=== PATIENT | male | born 1960 | race Hispanic/Latino ===

== ENCOUNTER 2024-05-09 06:30 | Observation (INO) | payer OTHER ==
[2024-05-07 11:08] LABS: BASOPHILS # (AUTO) 0.03 K/uL (0.00-0.20); BASOPHILS % (AUTO) 0.4 % (0.0-5.0); EOSINOPHILS # (AUTO) 0.16 K/uL (0.00-0.70); EOSINOPHILS % (AUTO) 2.2 % (0.0-8.0); HEMATOCRIT 42.8 % (42-54); IMMATURE GRANULOCYTE ABSOLUTE 0.03 K/uL (0-1); LYMPHOCYTES # (AUTO) 1.1 K/uL (1.0-4.8); LYMPHOCYTES % (AUTO) 14.7 % (21.0-51.0); MEAN CORPUSCULAR HEMOGLOBIN 32.1 pg (27.0-33.0); MEAN CORPUSCULAR HGB CONC 33.6 g/dL (32.0-36.0); MEAN CORPUSCULAR VOLUME 95.3 fL (79-99); MONOCYTES # (AUTO) 0.6 K/uL (0.1-1.0); MONOCYTES % (AUTO) 8.1 % (3.0-13.0); NEUTROPHILS # (AUTO) 5.3 K/uL (1.8-7.7); NEUTROPHILS % (AUTO) 74.2 % (40.0-77.0); PLATELET COUNT (AUTO) 201 K/uL (130-400); RED BLOOD CELL COUNT(AUTO) 4.49 MIL/uL (4.50-6.20); RED CELL DISTRIBUTION WIDTH 12.7 % (11.0-15.5); WHITE BLOOD COUNT (AUTO) 7.1 K/uL (4.8-10.8)
[2024-05-07 11:17] LABS: ALBUMIN 3.4 g/dL (3.5-5.0); CREATININE 0.9 mg/dL (0.5-1.3); POTASSIUM 3.7 mmol/L (3.5-5.1)
[2024-05-07 11:34] LABS: INR 1.03 (0.85-1.15); PROTHROMBIN TIME 11.1 SEC (9.6-11.6)
[2024-05-07 11:35] LABS: PARTIAL THROMBOPLASTIN TIME 27.6 SEC (26.3-35.5)
[2024-05-07 11:50] VITALS: BP 158/74; PULSE 72; RESP 16
[~2024-05-09] VITALS: Ht 180.3 cm; Wt 131.8 kg
[2024-05-09] VITALS (29 sets, daily range): BP systolic 124–178; BP diastolic 58–98; PULSE 63–112; RESP 14–18; O2SAT 95–98
[~2024-05-09 06:30] MED LIST: ATOR40TA71 PO; FINA5TAB41 PO; HYDR25TA PO; IBUP-2071 PO
[2024-05-09] MEDS: CEFAZOLIN SODIUM 2 GM VIAL ONE ×2 (06:37→18:04)
[2024-05-09] MEDS: CEFAZOLIN SODIUM 1 GM VIAL ONE (06:37)
[2024-05-09] MEDS: LACTATED RINGERS 1000ML 1,000 ML IV ONE (06:37)
[2024-05-09] MEDS ORDERED: TRANEXAMIC ACID 1000MG/10ML ONE (07:30)
[2024-05-09] MEDS ORDERED: KETOROLAC 30MG VIAL (30MG/ML) ONE (07:30)
[2024-05-09] MEDS ORDERED: ROPIVACAINE 0.5% 5MG/ML 30ML ONE ×3 (07:31→08:59)
[2024-05-09] MEDS ORDERED: MIDAZOLAM HCL 1 MG/ML 2ML VIAL ONE (08:44)
[2024-05-09] MEDS ORDERED: SUCCINYLCHOLINE CHLORIDE 20 MG/ML 10 ML VIAL ONE (08:44)
[2024-05-09] MEDS ORDERED: PROPOFOL 10 MG/ML 20ML VIAL IV ONE (08:44)
[2024-05-09] MEDS ORDERED: ROCURONIUM BROMIDE 10MG/1ML 5ML VL ONE ×2 (08:44→09:27)
[2024-05-09] MEDS ORDERED: FENTANYL CITRATE PF 50 MCG/1 ML 2ML VIAL ONE ×2 (08:44→09:52)
[2024-05-09] MEDS: CEFAZOLIN SODIUM 2 GM VIAL IVPB ONE (08:53)
[2024-05-09] MEDS ORDERED: TRAMADOL HCL 50 MG TABLET PO PRN (09:00)
[2024-05-09] MEDS ORDERED: POTASSIUM CHLORIDE 20MEQ/100ML 100 ML IV PRN (09:00)
[2024-05-09] MEDS: GABAPENTIN 100 MG CAPSULE PO SCH (09:00)
[2024-05-09] MEDS ORDERED: POTASSIUM CHLORIDE 10% ELIXIR 20 MEQ/15 ML UDCUP PO PRN (09:00)
[2024-05-09] MEDS ORDERED: KCL 20 MEQ ERTAB PO PRN (09:00)
[2024-05-09] MEDS ORDERED: DiphenhydrAMINE HCL 50 MG/ML VIAL IVP PRN (09:00)
[2024-05-09] MEDS ORDERED: CALCIUM CARB 500MG PO PRN (09:00)
[2024-05-09] MEDS: DOCUSATE SODIUM 100 MG CAP PO SCH (09:00)
[2024-05-09] MEDS ORDERED: ONDANSETRON 4MG INJ IVP PRN (09:00)
[2024-05-09] MEDS: POLYETHYLENE GLYCOL 3350 17 GM POWD.PACK PO SCH (09:00)
[2024-05-09] MEDS: 0.9%NACL 1000ML 1,000 ML IV SCH (09:00)
[2024-05-09] MEDS ORDERED: PHENYLEPHRINE HCL 10 MG/ML 1ML VIAL IV ONE (09:30)
[2024-05-09] MEDS ORDERED: OXYMETAZOLINE HCL SPRAY 15 ML BOTTLE ONE (10:59)
[2024-05-09] MEDS ORDERED: GLYCOPYRROLATE 0.2 MG/ML 5 ML VIAL ONE (11:11)
[2024-05-09] MEDS ORDERED: MEPERIDINE-PF 25 MG/ML SYG ONE (11:13)
[2024-05-09] MEDS ORDERED: ONDANSETRON 4MG INJ ONE (11:43)
[2024-05-09] MEDS: ONDANSETRON 4MG INJ ONE (12:30)
[2024-05-09] MEDS: MEPERIDINE-PF 25 MG/ML SYG ONE ×2 (12:30→12:55)
[2024-05-09] MEDS: KETOROLAC 15MG/ML VIAL (15MG/ML) ONE (12:49)
[2024-05-09] MEDS: KETOROLAC 15MG/ML VIAL (15MG/ML) IV SCH (12:50)
[2024-05-09] MEDS: CEFAZOLIN SODIUM 2 GM VIAL IVPB SCH (14:00)
[2024-05-09] MEDS: HYDROCODONE/ACETAMINOPHEN 5/325 MG TAB ONE (14:45)
[2024-05-09] MEDS: TRAMADOL HCL 50 MG TABLET ONE (15:31)
[2024-05-09] MEDS: HYDROCODONE/ACETAMINOPHEN 5/325 MG TAB PO PRN (23:02)
[2024-05-09] MEDS: BENZOCAINE/MENTH/CETYLPYRD CL 1 EACH LOZENGE MM PRN (23:02)
[2024-05-10] VITALS (7 sets, daily range): BP systolic 124–167; BP diastolic 60–83; PULSE 71–85; RESP 18–20; O2SAT 96–98
[2024-05-10 06:04] LABS: HEMATOCRIT 35.9 % (42-54); MEAN CORPUSCULAR HEMOGLOBIN 32.8 pg (27.0-33.0); MEAN CORPUSCULAR HGB CONC 34.3 g/dL (32.0-36.0); MEAN CORPUSCULAR VOLUME 95.7 fL (79-99); RED BLOOD CELL COUNT(AUTO) 3.75 MIL/uL (4.50-6.20); RED CELL DISTRIBUTION WIDTH 12.6 % (11.0-15.5); WHITE BLOOD COUNT (AUTO) 14.1 K/uL (4.8-10.8)
[2024-05-10 06:31] LABS: CREATININE 0.9 mg/dL (0.5-1.3); POTASSIUM 4.1 mmol/L (3.5-5.1)
[2024-05-10] MEDS: KETOROLAC 15MG/ML VIAL (15MG/ML) IV PRN (08:49)
[2024-05-10] MEDS: ASPIRIN 325MG EC TAB PO SCH (08:49)
[2024-05-10] MEDS: HYDROCHLOROTHIAZIDE 25 MG TABLET PO SCH (09:00)
[2024-05-10] MEDS: FINASTERIDE 5 MG TABLET PO SCH (09:20)
[2024-05-10] MEDS: ATORVASTATIN 40 MG TABLET PO SCH (09:20)
[2024-05-11 08:00] VITALS: O2SAT 97
[2024-05-11 08:18] VITALS: BP 157/73; PULSE 76; RESP 18
[2024-05-11] MEDS: FERROUS FUMARATE 324 MG TABLET PO PRN (09:05)
[2024-05-11] MEDS: CYCLOBENZAPRINE HCL 10 MG TABLET PO PRN (09:21)
[2024-05-11] MEDS ORDERED: GABA100C PO (09:39)
[2024-05-11] MEDS ORDERED: ASPI-891 PO (09:39)
[2024-05-11] MEDS ORDERED: HYDR-4060 PO (09:39)
[2024-05-11] MEDS ORDERED: CYCL-309 PO (09:39)
[2024-05-11] MEDS ORDERED: DOCU-116 PO (09:39)
[2024-05-11 11:52] VITALS: BP 158/73; PULSE 78; RESP 17
[2024-05-12] MEDS ORDERED: BISACODYL 10 MG SUPP.RECT RC PRN (09:00)
== END 2024-05-11 13:45 | disposition home or self-care (01) ==
LOC: DAH 06:30 → DAHIP 06:31 → DAH 06:31 → 4BH 18:25
PROVIDERS: ADMIT Student in an Organized Health Care Education/Training Program; ATTEND Student in an Organized Health Care Education/Training Program
DX: M17.11 Unilateral primary osteoarthritis, right knee (principal); D62 Acute posthemorrhagic anemia; Z79.899 Other long term (current) drug therapy; Z98.890 Other specified postprocedural states
CPT/HCPCS: 82040; 80048 ×2; 85025; 85610; 85730; 84134; 86140; 36415 ×2; 93005; 87641; 96365; 96375; 27447; 64447; 73560; 97161; 97116 ×5; 97530 ×5; 96376 ×2; 85027; G0378 ×47; A4223 ×2; A4663; J7120; J3010 ×2; J0690 ×5; J3490 ×4; J0330; J2250; J2704; J2405 ×2; J1885 ×7; J2175 ×3; J2795 ×4; J2371; C1713 ×2; G0168; C1776 ×2; A4649 ×2; A4930; A6255; A5120; A4215; A4213; A4222; A4221; A4216